=== PATIENT | female | born 1995 | race American Indian/Alaskan Native ===

== ENCOUNTER 2019-01-13 14:37 | Emergency (ER) | payer SELFPAY ==
--- NOTE | 2019-01-13 14:42 | Emergency Department Report ---
Blank Doc - Documentation Documentation: 23-year-old female that presents with left flank pain. This initial assessment/diagnostic orders/clinical plan/treatment(s) is/are subject to change based on patient's health status, clinical progression and re- assessment by fellow clinical providers in the ED. Further treatment and workup at subsequent clinical providers discretion. Patient/guardians urged not to elope from the ED as their condition may be serious if not clinically assessed and managed. Initial orders include: 1- Patient sent to [facility] for further evaluation and treatment 2- UA
[2019-01-13 14:44] VITALS: BP 107/67
[2019-01-13 15:22] LABS: Bilirubin,Urine NEG (Negative); Blood,Urine NEG (Negative); Color,Urine Yellow (Yellow); Mucus,Urine 1+ /HPF; Protein,Urine <15 mg/dL mg/dL (Negative); Urobilinogen,Urine < 2.0 mg/dL (<2.0)
[2019-01-13 15:28] LABS: HCG Qualitative,Urine Negative (Negative)
[2019-01-13 16:12] LABS: Hematocrit 38.5 % (30.3-42.9); Hemoglobin 13.3 gm/dl (10.1-14.3); Mean Corpuscular HGB Conc 35 % (30-34); Mean Corpuscular Volume 93 fl (79-97); Platelet Count 282 K/mm3 (140-440); Red Blood Count 4.17 M/mm3 (3.65-5.03); Red Cell Distribution Width 13.6 % (13.2-15.2)
--- NOTE | 2019-01-13 16:13 | XRay Report ---
CHEST 2 VIEWS INDICATION: chest tightness. COMPARISON: None FINDINGS: Support devices: None. Heart: Within normal limits. Lungs/pleura: No acute air space or interstitial disease. No pneumothorax. Additional findings: None. IMPRESSION: Normal chest x-ray. Signer Name: Misha Barnes Jr, MD Signed: 01/13/2019 4:09 PM Workstation Name: [id number]
[2019-01-13 16:35] LABS: BUN/Creatinine Ratio 13; Blood Urea Nitrogen 9 mg/dL (7-17); Calcium 9.7 mg/dL (8.4-10.2); Hemolysis Index 5
--- NOTE | 2019-01-13 17:02 | Emergency Department Report ---
ED General Adult HPI - General Chief complaint: Abdominal Pain Stated complaint: CHEST PAIN/LFT SIDE BACK PAIN Time Seen by Provider: 01/13/19 14:40 Source: patient Mode of arrival: Ambulatory Limitations: No Limitations - History of Present Illness Initial comments: pt is a 23-year-old female presents emergency room with complaints of left flank pain that began last night. States that she also has chest tightness that began last night. She denies any nausea, vomiting, fever, urinary symptoms, cough, shortness of breath, leg swelling. She states that she has also had intermittent diarrhea after being placed on amoxicillin for a dental abscess. she states the abscess completely resolved. She states that she has an appointment with a dentist on Thursday (01/15/19). She denies any past medical history or allergies medications. - Related Data Previous Rx's Medication Instructions Recorded Last Taken Type Cyclobenzaprine HCl [Flexeril 5 MG 5 mg PO QHS PRN #10 tablet 01/13/19 Unknown Rx TAB] Allergies Allergy/AdvReac Type Severity Reaction Status Date / Time No Known Allergies Allergy Unverified 01/13/19 14:41 ED Review of Systems ROS: Stated complaint: CHEST PAIN/LFT SIDE BACK PAIN Other details as noted in HPI Comment: All other systems reviewed and negative ED Past Medical Hx - Past Medical History Previous Medical History?: No - Surgical History Past Surgical History?: No - Social History Smoking Status: Current Every Day Smoker Substance Use Type: Alcohol - Medications Home Medications: Home Medications Medication Instructions Recorded Confirmed Last Taken Type Cyclobenzaprine HCl [Flexeril 5 MG 5 mg PO QHS PRN #10 tablet 01/13/19 Unknown Rx TAB] ED Physical Exam - General Limitations: No Limitations General appearance: alert, in no apparent distress - Head Head exam: Present: atraumatic, normocephalic - Eye Eye exam: Present: normal appearance - ENT ENT exam: Present: normal orophraynx, mucous membranes moist, other (no facial edema) - Respiratory Respiratory exam: Present: normal lung sounds bilaterally. Absent: respiratory distress, wheezes, rales, rhonchi, stridor, chest wall tenderness, accessory muscle use, decreased breath sounds, prolonged expiratory - Cardiovascular Cardiovascular Exam: Present: regular rate, normal rhythm, normal heart sounds. Absent: systolic murmur, diastolic murmur, rubs, gallop - Back Exam Back exam: Present: normal inspection, full ROM, CVA tenderness (L). Absent: CVA tenderness (R), paraspinal tenderness, vertebral tenderness - Neurological Exam Neurological exam: Present: alert, oriented X3 - Psychiatric Psychiatric exam: Present: normal affect, normal mood - Skin Skin exam: Present: warm, dry, intact ED Course Vital Signs 01/13/19 14:41 Temperature 98.1 F Pulse Rate 84 Respiratory 16 Rate Blood Pressure 107/67 O2 Sat by Pulse 100 Oximetry ED Medical Decision Making - Lab Data Result diagrams: 01/13/19 16:00 01/13/19 16:00 Lab Results 01/13/19 01/13/19 01/13/19 Range/Units 14:56 16:00 16:00 WBC 7.1 (4.5-11.0) K/mm3 RBC 4.17 (3.65-5.03) M/mm3 Hgb 13.3 (10.1-14.3) gm/dl Hct 38.5 (30.3-42.9) % MCV 93 (79-97) fl MCH 32 (28-32) pg MCHC 35 H (30-34) % RDW 13.6 (13.2-15.2) % Plt Count 282 (140-440) K/mm3 Sodium 141 (137-145) mmol/L Potassium 3.7 (3.6-5.0) mmol/L Chloride 107.6 H (98-107) mmol/L Carbon Dioxide 25 (22-30) mmol/L Anion Gap 12 mmol/L BUN 9 (7-17) mg/dL Creatinine 0.7 (0.7-1.2) mg/dL Estimated GFR > 60 ml/min BUN/Creatinine Ratio 13 % Glucose 86 (65-100) mg/dL Calcium 9.7 (8.4-10.2) mg/dL Urine Color Yellow (Yellow) Urine Turbidity Slightly-cloudy (Clear) Urine pH 6.0 (5.0-7.0) Ur Specific [place] 1.025 (1.003-1.030) Urine Protein <15 mg/dl (Negative) mg/dL Urine Glucose (UA) Neg (Negative) mg/dL Urine Ketones 20 (Negative) mg/dL Urine Blood Neg (Negative) Urine Nitrite Neg (Negative) Urine Bilirubin Neg (Negative) Urine Urobilinogen < 2.0 (<2.0) mg/dL Ur Leukocyte Esterase Neg (Negative) Urine WBC (Auto) 1.0 (0.0-6.0) /HPF Urine RBC (Auto) 2.0 (0.0-6.0) /HPF U Epithel Cells (Auto) 12.0 (0-13.0) /HPF Urine Mucus 1+ /HPF Urine HCG, Qual Negative (Negative) - Radiology Data Radiology results: report reviewed CHEST 2 VIEWS INDICATION: chest tightness. COMPARISON: None FINDINGS: Support devices: None. Heart: Within normal limits. Lungs/pleura: No acute air space or interstitial disease. No pneumothorax. Additional findings: None. IMPRESSION: Normal chest x-ray. Signer Name: Misha Lao Jr, MD Signed: 01/13/2019 4:09 PM Workstation Name: [id number] Transcribed By: TTR Dictated By: MISHA LAO JR, MD Electronically Authenticated By: MISHA LAO JR, MD Signed Date/Time: 01/13/191608 DD/ 07 TD/TT: - Medical Decision Making pt is a 23-year-old female presents emergency room with complaints of left flank pain that began last night. States that she also has chest tightness that began last night. She denies any nausea, vomiting, fever, urinary symptoms, cough, shortness of breath, leg swelling. She states that she has also had intermittent diarrhea after being placed on amoxicillin for a dental abscess. she states the abscess completely resolved. She states that she has an appointment with a dentist on Thursday (01/15/19). She denies any past medical history or allergies medications. vitals are normal. no abnormality on physical examination as documented. labs are normal, UA without evidence of UTI. XR chest: Normal chest x-ray. no clinical signs symptoms of PNA or asthma. PERC criteria negative for PE. UA is normal, no CVAT on exam, no spinal or paraspinal TTP. symptoms could be related to musculoskeletal strain. pt given prescription for flexeril. advised pt May take Tylenol or ibuprofen for any discomfort. take medication as prescribed as needed. Do not drive or operate machinery while taking muscle relaxer. May use ice pack, heating pad, rest, epsom salt bath. Follow-up with a primary care doctor in the next 2-3 days. Return to the emergency room for any new or worsening symptoms. - Differential Diagnosis asthma, URI, PNA, PTX, UTI, nephrolithiasis, pyelonephritis, muscle strain Critical care attestation.: If time is entered above; I have spent that time in minutes in the direct care of this critically ill patient, excluding procedure time. ED Disposition Clinical Impression: Left flank pain, Chest tightness Disposition: TO HOME OR SELFCARE Is pt being admited?: No Does the pt Need Aspirin: No Condition: Stable Instructions: Chest Pain (ED), Flank Pain (ED) Additional Instructions: May take Tylenol or ibuprofen for any discomfort. take medication as prescribed as needed. Do not drive or operate machinery while taking muscle relaxer. May use ice pack, heating pad, rest, epsom salt bath. Follow-up with a primary care doctor in the next 2-3 days. Return to the emergency room for any new or worsening symptoms. Prescriptions: Cyclobenzaprine HCl [Flexeril 5 MG TAB] 5 mg PO QHS PRN #10 tablet PRN Reason: Muscle Spasm Referrals: [facility] [Outside] - 2-3 Days CORBIN MICHELLE MD [Staff Physician] - 2-3 Days Forms: Work/School Release Form(ED) Time of Disposition: 17:00 Print Language: DANISH
[2019-01-13] MEDS ORDERED: CYCLOBENZAPRINE 10 MG TAB PO ONE (17:11)
[2019-01-13] MEDS ORDERED: CYCLOBENZAPRINE 10 MG TAB ONE (17:15)
== END 2019-01-13 17:16 | disposition home or self-care (01) ==
LOC: ED 14:37
DX: R10.9 Unspecified abdominal pain (principal); R07.89 Other chest pain; F17.200 Nicotine dependence, unspecified, uncomplicated
CPT/HCPCS: 36415; 71046; 80048; 81001; 81025; 85027